=== PATIENT | male | born 1995 | race Caucasian/White ===

== ENCOUNTER 2018-12-22 17:25 | Emergency (ER) | payer SELFPAY ==
[2018-12-22 17:38] VITALS: BP 135/87; PULSE 75; RESP 16; TEMP 37; O2SAT 100
--- NOTE | 2018-12-22 18:03 | ED.GENADUL_ITS ---
Discharge Plan Disposition Patient Disposition: HOME Condition: Improving Discharge Details Chief Complaint: Laceration Clinical Impression: Finger laceration, Extensor tendon rupture of hand Primary Care Provider: Agustina,Local ED Provider: Trice Maya Home Meds and New Rx's Prescriptions: New cephalexin [Keflex] 500 mg capsule 500 mg PO QID Qty: 20 RF: 0 Continued oxycodone-acetaminophen 1 TAB tablet 1 tab PO Q6H PRN PRN (Reason: Pain) Qty: 7 RF: 0 clindamycin HCl 300 MG capsule 300 mg PO TID 10 Days RF: 0 Discharge Instructions Instructions: Finger Laceration (ED), Tendon Laceration (ED) Additional Instructions: Encourage rest, ice, elevation. Tylenol and/or Ibuprofen as needed for discomfort. Keep current dressing on for the next 24 hours, after that please apply dressing and splint. You will need follow up with orthopedics, please call tomorrow to schedule follow up appointment. Return in 10 days for suture removal. Please keep splint on until reevaluated by orthopedics. Monitor wound for signs of infection including redness, warmth, drainage, increased pain, fevers/chills. If these or other new/worsening symptoms arise please seek care ugently once again. Stand Alone Forms: Work Release Referrals: Andreas Malhotra MD [ [facility] STAFF PHYSICIAN] - Discharge Data Discharge Date/Time-TO BE ENTERED AT DEPARTURE: 12/22/18 20:45 Medical Decision Making Patient is a 23 [facility] to the right index finger. Reports that prior to arrival he was trying to open a locked door, slipped with knife and cut himself. 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 2 point discrimination is intact. He is unable to extend the PIP or DIP joints. I am concerned for possible fracture, plan for imaging. Patient reports he is UTD on tetanus. No other injury at the time of the incident. FINDINGS: Bones/joints: No definite fracture or subluxation with attention to the second digit, frontal imaging somewhat limited by flexion of the interphalangeal joints. No dislocation. Soft tissues: Digital soft tissue swelling. No radiopaque foreign body. IMPRESSION: 1. No radiopaque foreign body. 2. No definite fracture or subluxation with attention to the second digit, frontal imaging somewhat limited by flexion of the interphalangeal joints. Discussed findigs with [facility] patient. We discussed risk/benefits of digital block and suture closure. He voiced understanding and wished to proceed Please see procedure note. This was performed under digital block which was injected using standard sterile technique. Patient tolerated procedure well. Wound was copiously irrigated, explored to base in bloodless field. Use a tourniquet for further evaluation. The extensor tendon is lacerated on exam, unable to visualize the proximal segment. Patient was placed in a bulky dressing and immobilizer. Finger held in extension. Encouraged elevation. Advised he will need close follow-up with orthopedics. He will call tomorrow morning to schedule appointment. We discussed activities that he should avoid. He will keep splint on until evaluated by orthopedics. We discussed the signs symptoms of infection when to seek care urgently once again. Given the depth of the wound, feel that antibiotics likely are appropriate. Patient prophylactically placed on Keflex. Advised Tylenol and ibuprofen as needed for discomfort. All his questions and concerns were addressed and he is in agreement this plan. HPI General Mode of arrival: ambulatory . Date/Time Provider Initiated Documentation: 12/22/18 18:02 . Limitations to Documentation: no limitations . Information obtained by: patient and RN notes reviewed . HPI Narrative: Patient is a 23-year-old [id number] male presents today with chief complaint of laceration to the right index finger. He reports a prior to arrival he was trying to open a locked door when he slipped with a knife and cut his finger. Patient has a wound to the dorsal aspect just distal to the PIP joint. States his pain is fairly minimal listers with it. He does not feel that he is able to extend the digit. Denies any sensory deficit. States that his tetanus is in the last 2 years. Denies other injury the time of the incident peer Related Data Home Medications Medication Instructions Recorded Confirmed clindamycin HCl 300 mg PO TID 10 Days cap 12/03/01/04/16 oxycodone-acetaminophen 1 tab PO Q6H PRN PRN #7 tab 12/04/15 01/04/16 cephalexin [Keflex] 500 mg PO QID #20 cap 12/22/18 Previous Rx's Medication Instructions Recorded clindamycin HCl 300 mg PO TID 10 Days cap 12/04/15 oxycodone-acetaminophen 1 tab PO Q6H PRN PRN #7 tab 12/04/15 cephalexin [Keflex] 500 mg PO QID #20 cap 12/22/18 Allergies Allergy/AdvReac Type Severity Reaction Status Date / Time No Known Allergies Allergy Unverified 01/04/16 11:55 General Stated Complaint: Laceration GOPI: 4 Review of Systems Constitutional Reports as per HPI, Denies chills and Denies fever(s) Musculoskeletal Reports as per HPI Integumentary/Breasts Reports as per HPI Neurologic Reports as per HPI, Denies sensory deficit and Denies paresthesias [facility] Social History Smoking/Tobacco Use Status: Current every day Drug use: Occasionally Exam Const General: cooperative, healthy appearing, comfortable, no acute distress and well developed Nutritional Appearance: average body habitus and well nourished Orientation: alert and awake Resp Effort & Inspection: normal respiratory effort, able to speak in complete sentences and no respiratory distress Cardio Rate: regular rate Rhythm: regular rhythm Skin Trauma: laceration (2cm linear laceration just distal to PIP joint right index finger) Neuro General: alert and awake Cognition: normal cognition Speech: speech normal Gait: normal gait Sensory Exam: no sensory deficits noted Extrem Right upper extremity: normal capillary refill, no joint enlargement, wrist Details: normal to inspection and normal ROM; no tenderness and no swelling and hand Details: abnormal to inspection (laceration as above), normal capillary refill, neurosensory exam normal (2 point intact), tendon exam abnormal (unable to extend the PIP or DIP joint of index finger), tenderness (over laceration), vascular exam Details: radial pulse present and normal capillary refill, no swelling and laceration; no unusual warmth, no ecchymosis and no crepitus; abnormal to inspection, ROM limited and no edema Psych Appearance: grossly normal and well kempt Mental Status: mental status grossly normal Speech and Movement: speech and movement normal Course Vital Signs Temperature 37.0 C 12/22/18 17:38 Pulse 75 12/22/18 17:38 Respiratory Rate 16 12/22/18 17:38 Blood Pressure 135/87 12/22/18 17:38 Pulse Oximetry 100 12/22/18 17:38 Temperature 37.0 C 12/22/18 17:38 Temperature Source Skin 12/22/18 17:38 Pulse 75 12/22/18 17:38 Respiratory Rate 16 12/22/18 17:38 Blood Pressure 135/87 12/22/18 17:38 Blood Pressure Position Sitting 12/22/18 17:38 Pulse Oximetry 100 12/22/18 17:38 Oxygen Delivery Method Room Air 12/22/18 17:38 Oxygen Flow Rate 0 12/22/18 17:38 Pain Level 2 12/22/18 17:38 Procedures Laceration Laceration 1: Site: hand Side (If applicable): right Size (cm): 2 Description: linear Depth: involves tendon (PIP extensor tendon rupture) Local Anesthetic: Lidocaine 1% Amount of anesthesia used (mL): 6 Pre-repair: wound explored and irrigated extensively Skin layer closed with: nylon Size (cm): 5-0 Number of sutures: 6
--- NOTE | 2018-12-22 18:08 | DI.RAD_ITS ---
SYMPTOM/DIAGNOSIS: DEEP LACERATION WITH LIGAMENTOUS INJURY RIGHT INDEX FINGER: 12/22 Four views were obtained. There is an apparent dorsal laceration adjacent to the PIP joint. No underlying fracture seen.
[2018-12-22] MEDS: Ibuprofen 600 MG TAB PO (18:29)
[2018-12-22] MEDS: Acetaminophen 500 MG TAB 1000 MG PO (18:29)
--- NOTE | 2018-12-22 19:05 | DI.VRAD_ITS ---
EXAM: XR Right Finger(s) EXAM DATE/TIME: 12/22/2018 18:08 CLINICAL HISTORY: 23 years old, male; Other: Deep laceration with legamentous injury TECHNIQUE: Imaging protocol: XR Right fingers. Views: Minimum 2 views. COMPARISON: No relevant prior studies available. FINDINGS: Bones/joints: No definite fracture or subluxation with attention to the second digit, frontal imaging somewhat limited by flexion of the interphalangeal joints. No dislocation. Soft tissues: Digital soft tissue swelling. No radiopaque foreign body. IMPRESSION: 1. No radiopaque foreign body. 2. No definite fracture or subluxation with attention to the second digit, frontal imaging somewhat limited by flexion of the interphalangeal joints. Dictated and Authenticated by: Lottie Saldana MD. Ordering:MAMI Carnes MD
[2018-12-22] MEDS: Cephalexin 500 MG CAP PO (20:30)
[2018-12-22 20:45] VITALS: BP 141/67; PULSE 66; RESP 14; O2SAT 98
== END 2018-12-22 20:45 | disposition home or self-care (01) ==
PROVIDERS: Emergency Provider Physician Assistant
DX: S61.210A Laceration without foreign body of right index finger without damage to nail, initial encounter (principal); W26.0XXA Contact with knife, initial encounter
CPT/HCPCS: 12001; 99283; 73140; 99282